=== PATIENT | female | born 1985 | race American Indian/Alaskan Native ===

== ENCOUNTER 2025-07-10 19:45 | Emergency (ER) | payer OTHER ==
[~2025-07-10] VITALS: Ht 170.2 cm; Wt 51.0 kg
[~2025-07-10 19:45] MED LIST: AMOXICILLIN500 MG PO; DAILY VALUE1 EACH PO
[2025-07-10 22:55] VITALS: BP 151/87
== END 2025-07-10 22:57 | disposition home or self-care (01) ==
LOC: ED 19:45
DX: S51.812A Laceration without foreign body of left forearm, initial encounter (principal); X78.1XXA Intentional self-harm by knife, initial encounter; F17.200 Nicotine dependence, unspecified, uncomplicated; Z79.899 Other long term (current) drug therapy
CPT/HCPCS: 99284